=== PATIENT | male | born 1975 | race Caucasian/White ===

== ENCOUNTER 2017-12-18 13:00 | Emergency (ER) | payer OTHER, BC ==
[2017-12-18] MEDS ORDERED: NORMAL SALINE 1000 ML 1,000 ML IV ONE (13:28)
[2017-12-18 13:52] LABS: ABSOLUTE BASOPHILS # (AUTO) 0.1 10^3/uL (0.0-0.2); ABSOLUTE EOSINOPHILS # (AUTO) 0.3 10^3/uL (0.0-0.6); ABSOLUTE LYMPHOCYTES (AUTO) 1.6 10^3/uL (0.5-4.7); ABSOLUTE MONOCYTES (AUTO) 0.7 10^3/uL (0.1-1.4); ABSOLUTE NEUT (AUTO) 9.6 10^3/uL (1.7-8.2); BASOPHILS % (AUTO) 0.5 % (0-2); EOSINOPHILS % (AUTO) 2.2 % (0-6); HEMATOCRIT 47.5 % (37.9-51.0); HEMOGLOBIN 16.1 g/dL (13.5-17.0); LYMPHOCYTES % (AUTO) 13.1 % (13-45); MEAN CORPUSCULAR HEMOGLOBIN 29.1 pg (27.0-33.4); MEAN CORPUSCULAR VOLUME 86 fl (80-97); MONOCYTES % (AUTO) 5.4 % (3-13); PLATELET COUNT 265 10^3/uL (150-450); RED BLOOD COUNT 5.56 10^6/uL (4.35-5.55); SEGMENTED NEUTROPHILS % (AUTO) 78.8 % (42-78); TOTAL CELLS COUNTED % (AUTO) 100 %; WHITE BLOOD COUNT 12.2 10^3/uL (4.0-10.5)
[2017-12-18 13:58] LABS: APPEARANCE,URINE SLIGHTLY-CLOUDY; BILIRUBIN,URINE NEGATIVE (NEGATIVE); COLOR,URINE YELLOW; GLUCOSE, URINE NEGATIVE (NEGATIVE); KETONES,URINE NEGATIVE (NEGATIVE); LEUKOCYTE ESTERASE,URINE NEGATIVE (NEGATIVE); NITRITE,URINE NEGATIVE (NEGATIVE); PROTEIN,URINE NEGATIVE (NEGATIVE); UROBILINOGEN,URINE NEGATIVE mg/dL (<2.0)
[2017-12-18 14:09] LABS: ALANINE AMINOTRANSFERASE 25 U/L (21-72); ALBUMIN 4.1 g/dL (3.5-5.0); ALKALINE PHOSPHATASE 64 U/L (38-126); ANION GAP 8 (5-19); ASPARTATE AMINO TRANSFERASE 26 U/L (17-59); BILIRUBIN,DIRECT 0.3 mg/dL (0.0-0.4); BILIRUBIN,TOTAL 0.3 mg/dL (0.2-1.3); BLOOD UREA NITROGEN 29 mg/dL (7-20); CALCIUM 9.2 mg/dL (8.4-10.2); CARBON DIOXIDE 23 mmol/L (22-30); CHLORIDE 110 mmol/L (98-107); GLUCOSE 109 mg/dL (75-110); LIPASE 74.6 U/L (23-300); POTASSIUM 4.2 mmol/L (3.6-5.0); TOTAL PROTEIN 6.7 g/dL (6.3-8.2)
--- NOTE | 2017-12-18 15:52 | ER Document Report ---
ED GI/ - General Chief Complaint: Abdominal Pain Stated Complaint: ABDOMINAL PAIN Time Seen by Provider: 12/18/17 13:18 Mode of Arrival: Ambulatory Information source: Patient Notes: Patient started experiencing periumbilical abdominal pain after he lifted a heavy object at work. TRAVEL OUTSIDE OF THE [place] IN LAST 30 DAYS: No - HPI Patient complains to provider of: Abdominal pain. No: Dysuria, Vomiting Onset: Just prior to arrival Timing/Duration: Sudden Quality of pain: Sharp Severity at maximum: Mild Severity in ED: Mild Pain Level: 2 Context: Lifting Location: Other - Umbilical Associated symptoms: None Exacerbated by: Denies Relieved by: Denies Similar symptoms previously: No Recently seen / treated by doctor: No - Related Data Allergies/Adverse Reactions: No Known Allergies Allergy (Verified 12/18/17 13:02) Past Medical History - Social History Smoking Status: Never Smoker Chew tobacco use (# tins/day): Yes Family History: Reviewed & Not Pertinent Patient has suicidal ideation: No Patient has homicidal ideation: No - Past Medical History Cardiac Medical History: Reports: Hx Hypertension Renal/ Medical History: Denies: Hx Peritoneal Dialysis Psychiatric Medical History: Denies: Hx Depression Review of Systems - Review of Systems Constitutional: denies: Chills, Fever EENT: denies: Eye pain, Eye discharge Cardiovascular: denies: Chest pain, Palpitations, Syncope Respiratory: denies: Cough, Short of breath Gastrointestinal: Abdominal pain. denies: Nausea, Vomiting, Poor appetite Genitourinary: No symptoms reported Male Genitourinary: No symptoms reported Musculoskeletal: No symptoms reported Skin: No symptoms reported Hematologic/Lymphatic: No symptoms reported Neurological/Psychological: No symptoms reported -: Yes All other systems reviewed and negative Physical Exam - Vital signs Vitals: Temp Pulse Resp BP Pulse Ox 98.5 F 93 16 134/77 H 97 12/18/17 13:07 12/18/17 13:07 12/18/17 13:07 12/18/17 13:07 12/18/17 13:07 - General General appearance: Appears well, Alert In distress: None - HEENT Head: Normocephalic, Atraumatic Eyes: Normal Pupils: PERRL - Respiratory Respiratory status: No respiratory distress Chest status: Nontender Breath sounds: Normal Chest palpation: Normal - Cardiovascular Rhythm: Regular Heart sounds: Normal auscultation Murmur: No - Abdominal Inspection: Normal Distension: No distension Bowel sounds: Normal Tenderness: Other - Umbilical hernia with tenderness to palpation. The hernia is reducible. Organomegaly: No organomegaly - Back Back: Normal, Nontender - Extremities General upper extremity: Normal inspection, Nontender, Normal color, Normal ROM , Normal temperature General lower extremity: Normal inspection, Nontender, Normal color, Normal ROM , Normal temperature, Normal weight bearing. No: Juan Jose's sign - Neurological Neuro grossly intact: Yes Cognition: Normal Orientation: AAOx4 Herman Coma Scale Eye Opening: Spontaneous [place] Coma Scale Verbal: Oriented Herman Coma Scale Motor: Obeys Commands Herman Coma Scale Total: 15 Speech: Normal Motor strength normal: LUE, RUE, LLE, RLE Sensory: Normal - Psychological Associated symptoms: Normal affect, Normal mood - Skin Skin Temperature: Warm Skin Moisture: Dry Skin Color: Normal Course - Vital Signs Vital signs: Temp Pulse Resp BP Pulse Ox 98.5 F 56 L 16 168/93 H 100 12/18/17 17:59 12/18/17 17:59 12/18/17 13:07 12/18/17 17:59 12/18/17 17:59 - Laboratory Result Diagrams: 12/18/17 13:45 12/18/17 13:45 Laboratory results interpreted by me: 12/18/17 12/18/17 13:45 13:45 WBC 12.2 H RBC 5.56 H Seg Neutrophils % 78.8 H Absolute Neutrophils 9.6 H Chloride 110 H BUN 29 H - Transfer of Care Notes: 12/18/17 16:55 Umbilical hernia. Discharge - Discharge Clinical Impression: Umbilical hernia without obstruction or gangrene Condition: Stable Disposition: HOME, SELF-CARE Instructions: Abdominal Pain ([facility]), Umbilical Hernia ([facility]) Additional Instructions: Please follow-up with Dr. Preciado Safely tomorrow morning in his clinic. Return to the emergency room if her condition worsens. Referrals: KYLEIGH FERRO MD [ACTIVE STAFF] - Follow up as needed
--- NOTE | 2017-12-18 17:37 | RADIOLOGY REPORT (SQ) ---
EXAM DESCRIPTION: CT ABD/PELVIS WITH IV ORAL COMPLETED DATE/TIME: 12/18/2017 4:45 pm REASON FOR STUDY: abdominal pain COMPARISON: None. TECHNIQUE: CT scan of the abdomen and pelvis performed using helical scanning technique with dynamic intravenous contrast injection. Oral contrast. Images reviewed with lung, soft tissue, and bone win dows. Reconstructed coronal and sagittal MPR images reviewed. Delayed images for evaluation of the ur inary system also acquired. All images stored on PACS. All CT scanners at this facility use dose modulation, iterative reconstruction, and/or weight based d osing when appropriate to reduce radiation dose to as low as reasonably achievable (ALARA). [facility]: Dose Right [facility]: CareDose [facility]: Dose Right [facility]: Teradose 4D [facility]: ShareThis CONTRAST TYPE AND DOSE: contrast/concentration: Isovue 350.00 mg/ml; Total Contrast Delivered: 100.0 ml; Total Saline Delivered: 40.0 ml RENAL FUNCTION: BUN 29 creatinine 1.07 RADIATION DOSE: CT Rad equipment meets quality standard of care and radiation dose reduction techniq ues were employed. CTDIvol: 9.9 - 14.0 mGy. DLP: 1425 mGy-cm.. LIMITATIONS: None. FINDINGS: LOWER CHEST: No significant findings. No nodules or infiltrates. LIVER: Normal size. No masses. No dilated ducts. SPLEEN: Normal size. No focal lesions. PANCREAS: No masses. No significant calcifications. No adjacent inflammation or peripancreatic fluid collections. Pancreatic duct not dilated. GALLBLADDER: No identified stones by CT criteria. No inflammatory changes to suggest cholecystitis. ADRENAL GLANDS: No significant masses or asymmetry. RIGHT KIDNEY AND URETER: No solid masses. No significant calcifications. No hydronephrosis or hyd roureter. LEFT KIDNEY AND URETER: No solid masses. No significant calcifications. No hydronephrosis or hydr oureter. AORTA AND VESSELS: No aneurysm. No dissection. Renal arteries, SMA, celiac without stenosis. RETROPERITONEUM: No retroperitoneal adenopathy, hemorrhage or masses. BOWEL AND PERITONEAL CAVITY: No masses or inflammatory changes. No free fluid or peritoneal masses. APPENDIX: Normal. PELVIS: No mass. No free fluid. Normal bladder. ABDOMINAL WALL: 18 mm wide umbilical hernia containing fat. Small inguinal hernias. BONES: No significant or acute abnormality. OTHER: No other significant finding. IMPRESSION: Umbilical hernia containing fat. Small inguinal hernias. TECHNICAL DOCUMENTATION: JOB ID: [id number] Quality ID # [id number]: Final reports with documentation of one or more dose reduction techniques (e.g., Au tomated exposure control, adjustment of the mA and/or kV according to patient size, use of iterative reconstruction technique) 2010 [employer]- All Rights Reserved Reading location - IP/workstation name: [email or web address]
[2017-12-18 18:00] VITALS: BP 168/93
== END 2017-12-18 18:02 | disposition home or self-care (01) ==
LOC: ER 13:00
DX: K42.9 Umbilical hernia without obstruction or gangrene (principal); F17.220 Nicotine dependence, chewing tobacco, uncomplicated
CPT/HCPCS: 36415; 74177; 80053; 81001; 83690; 85025; 96360; 96361; 99284

== ENCOUNTER 2018-01-23 09:52 | Day surgery (SDC) | payer BC, OTHER ==
[2018-01-17 14:48] LABS: HEMATOCRIT 46.1 % (37.9-51.0); HEMOGLOBIN 16.2 g/dL (13.5-17.0); MEAN CORPUSCULAR HEMOGLOBIN 29.6 pg (27.0-33.4); MEAN CORPUSCULAR HGB CONC 35.1 g/dL (32.0-36.0); MEAN CORPUSCULAR VOLUME 84 fl (80-97); PLATELET COUNT 262 10^3/uL (150-450); RED BLOOD COUNT 5.46 10^6/uL (4.35-5.55); RED CELL DISTRIBUTION WIDTH 13.3 % (11.5-14.0); WHITE BLOOD COUNT 10.6 10^3/uL (4.0-10.5)
--- NOTE | 2018-01-17 22:37 | EKG REPORT ---
SEVERITY:- NORMAL ECG - SINUS RHYTHM : Confirmed by: Kristi Sahni MD 17-Jan-2018 22:37:12
[~2018-01-23 09:52] MED LIST: ACETAMINOPHEN 325 MG TABLET PO PRN; BUPIVACAINE HCL 0.25 % INJ/PF (2.5 MG/1 ML) 30 ML VIAL ONE; CEFAZOLIN 2 GM/D5W RTU 2 GM/50 ML RTUPB IV PRN; LIDOCAINE 1% INJ-PF (10 MG/ML) 30 ML SDV ONE
[2018-01-23] MEDS ORDERED: MIDAZOLAM 2 MG/2 ML INJ ONE ×2 (09:53→10:14)
[2018-01-23] MEDS ORDERED: FENTANYL CITRATE INJ/PF 100 MCG/2 ML AMPUL ONE (09:53)
[2018-01-23] MEDS ORDERED: ONDANSETRON HCL INJ/PF 4 MG/2 ML SDV ONE (09:53)
[2018-01-23] MEDS ORDERED: PROPOFOL INJ 200 MG/20 ML VIAL IV ONE ×2 (09:54→10:15)
[2018-01-23] MEDS ORDERED: KETAMINE HCL INJ 500 MG/10 ML VIAL ONE (10:15)
--- NOTE | 2018-01-23 11:26 | Discharge Summary ---
Discharge Summary (SDC) - Discharge Final Diagnosis: Symptomatic umbilical hernia Date of Surgery: 01/23/18 Discharge Date: 01/23/18 Forms: [facility] Discharge Plan Referrals: KYLEIGH FERRO MD [ACTIVE STAFF] - Discharge Diet: As Tolerated Respiratory Treatments at Home: Deep Breathing/Coughing, Incentive Spirometer Discharge Activity: No Lifting Over 10 Pounds Home Care Assistance: None Needed Report the Following to Your Physician Immediately: Shortness of Breath, Nausea , Vomiting, Increase in Pain, Fever over 101 Degrees, Unusual Bleeding, Redness
--- NOTE | 2018-01-23 11:30 | Operative Report ---
Nonrecallable Operative Report DATE OF SURGERY: 01/23/18 PREOPERATIVE DIAGNOSIS: Symptomatic umbilical hernia POSTOPERATIVE DIAGNOSIS: Same as above OPERATION: Open umbilical hernia repair with mesh. SURGEON: KYLEIGH FERRO ANESTHESIA: LMAC TISSUE REMOVED OR ALTERED: None COMPLICATIONS: None apparent ESTIMATED BLOOD LOSS: Minimal PROCEDURE: Drains/implants: 6.[address] hernia mesh. Procedure in detail: After informed consent was obtained, the patient was brought to the operating room and laid in the supine position. The area of the abdomen was prepped and draped in a normal sterile fashion. A curvilinear infraumbilical incision was created. It was deepened using sharp and blunt dissection. The cicatrix was identified, encircled with a Lashanda clamp, retracted upwards, and divided at its base. This divided the hernia sac. A small amount of preperitoneal fat was found within the hernia sac. This was reduced back into the preperitoneal space. Defect was measured at approximately 2 cm. Secondary to this, a 6.4 cm hernia mesh was chosen to cover the defect. The mesh was inserted into the preperitoneal space. It was sutured in 4 quadrants using 0 Prolene suture in mattress fashion. The fascia was closed over top of the mesh using 0 Prolene suture in [id number] fashion. The cicatrix was tacked back to the abdominal fascia using 3-0 Vicryl suture. The subcutaneous tissue was closed using 3-0 Vicryl suture in simple running fashion. The overlying skin was closed using 4-0 Vicryl Rapide suture in running subcuticular fashion. A dressing was placed, and the procedure was concluded. All sponge, instrument, and needle counts were correct x2. Condition: Stable.
[2018-01-23] MEDS ORDERED: IBUPROFEN 800 MG TABLET ONE (12:08)
== END 2018-01-23 12:19 | disposition home or self-care (01) ==
LOC: SC 09:52
PROVIDERS: ATTEND Surgery
DX: K42.9 Umbilical hernia without obstruction or gangrene (principal); I10 Essential (primary) hypertension; F17.210 Nicotine dependence, cigarettes, uncomplicated; Z79.899 Other long term (current) drug therapy
CPT/HCPCS: 93005; 36415; 85027; 93010; 49585; J2250; J3010; J3490 ×2; J2405; J2704; J0690; 750

== ENCOUNTER 2018-03-08 18:56 | Emergency (ER) | payer OTHER ==
[2018-03-08] MEDS ORDERED: OXYCODONE-ACETAMINOPHEN 5-325 MG TABLET PO ONE (19:34)
--- NOTE | 2018-03-08 19:36 | ER Document Report ---
ED Medical Screen (RME) - General Chief Complaint: Knee Injury Stated Complaint: WC/FALL Time Seen by Provider: 03/08/18 19:34 Notes: Patient is a 42-year-old male that presents to the emergency department for chief complaint of left knee pain. Patient states he slipped and fell around 2 PM today, the twisting motion, and now has significant knee pain, seen in urgent care, advised to come to the ED. Currently rates his pain as a 9 out of 10, aching and worse with any range of motion of his knee.. ROS: Other than noted above, the 12 point review of systems was reviewed with the patient and were negative, all pertinent findings are included in the HPI. PHYSICAL EXAMINATION: Vital signs reviewed. GENERAL: Well-appearing, well-nourished and in no acute distress. HEAD: Atraumatic, normocephalic. EYES: Pupils equal round extraocular movements intact, conjunctiva are normal. ENT: Nares patent NECK: Normal range of motion CV: Heart regular rate and rhythm LUNGS: No respiratory distress Musculoskeletal: Pain with extension of the left knee, patient is unable to fully extend his left knee, the patella appears to be subluxed laterally, there is tenderness with palpation, and an appreciable joint effusion. He also has joint line tenderness over the medial aspect of his knee. NEUROLOGICAL: Normal speech PSYCH: Normal mood, normal affect. MDM: Patient seen and examined for rapid initial assessment. Vital signs reviewed. A comprehensive ED assessment and evaluation of the patient, analysis of test results and completion of the medical decision making process will be conducted by additional ED providers. *Note is created using voice recognition software and may contain spelling, syntax or grammatical errors. TRAVEL OUTSIDE OF THE [place] IN LAST 30 DAYS: No - Related Data Allergies/Adverse Reactions: No Known Allergies Allergy (Verified 01/23/18 09:59) Past Medical History - Social History Chew tobacco use (# tins/day): Yes Frequency of alcohol use: Occasional Drug Abuse: None - Past Medical History Cardiac Medical History: Reports: Hx Hypertension Denies: Hx Heart Attack Pulmonary Medical History: Denies: Hx Asthma Neurological Medical History: Denies: Hx Cerebrovascular Accident, Hx Seizures Renal/ Medical History: Denies: Hx Peritoneal Dialysis GI Medical History: Denies: Hx Hepatitis, Hx Hiatal Hernia, Hx Ulcer Psychiatric Medical History: Denies: Hx Depression Infectious Medical History: Denies: Hx Hepatitis Past Surgical History: Denies: Hx Open Heart Surgery, Hx Pacemaker Physical Exam - Vital signs Vitals: Temp Pulse Resp BP Pulse Ox 98.2 F 93 16 136/79 H 97 03/08/18 19:05 03/08/18 19:05 03/08/18 19:05 03/08/18 19:05 03/08/18 19:05 Course - Vital Signs Vital signs: Temp Pulse Resp BP Pulse Ox 98.2 F 93 16 136/79 H 97 03/08/18 19:05 03/08/18 19:05 03/08/18 19:05 03/08/18 19:05 03/08/18 19:05 Doctor's Discharge - Discharge Referrals: ANN CRISTINA FILLING MACHINE OPERATOR [Primary Care Provider] - Follow up as needed
--- NOTE | 2018-03-08 20:15 | RADIOLOGY REPORT (SQ) ---
EXAM DESCRIPTION: KNEE LEFT 3 VIEWS COMPLETED DATE/TIME: 03/08/2018 8:03 pm REASON FOR STUDY: left knee pain, injury COMPARISON: None. NUMBER OF VIEWS: Three views. TECHNIQUE: AP, lateral, and sunrise patella radiographic images acquired of the left knee. LIMITATIONS: None. FINDINGS: MINERALIZATION: Osteopenia. BONES: No acute fracture or dislocation. No worrisome bone lesions. Tricompartmental degenerative c hanges are present, most significantly affecting in the lateral compartment. JOINT: No significant joint effusion is present. SOFT TISSUES: Rounded hyperdensities localizing to the posteromedial soft tissues are of uncertain et iology or significance. OTHER: No other significant finding. IMPRESSION: Tricompartmental degenerative changes. No evidence of acute osseous injury. TECHNICAL DOCUMENTATION: JOB ID: [id number] [employer]- All Rights Reserved Reading location - IP/workstation name: [email or web address]
[2018-03-08] MEDS ORDERED: HYDROCODONE/ACETAMINOPHEN 5-325 MG (6 TAB/ER DISP) PO PRN (20:39)
[2018-03-08] MEDS ORDERED: IBUPROFEN 800 MG TABLET PO ONE (20:40)
--- NOTE | 2018-03-08 20:41 | ER Document Report ---
Doctor's Note Notes: I personally and independently obtained patient history and examined the patient in conjunction with the APC and agree with the assessment, treatment plan and disposition of the patient as recorded by the APC, and have reviewed the APC's note. HISTORY OF PRESENT ILLNESS: Patient is a 42-year-old male that presents to the emergency department for chief complaint of left knee pain after injury and fall. Patient fell at work on 2 PM, and injured his left knee, it has been worse since then, initially went to urgent care, they took x-rays and advised him to come to the ED. ROS: Constitutional: Negative for fever. Cardiovascular: Negative for chest pain. Respiratory: Negative for shortness of breath. Gastrointestinal: Negative for vomiting or abdominal pain Musculoskeletal: Positive for knee pain. Skin: Negative for rash. Neurological: Negative for weakness or numbness. Other than noted above, the 12 point review of systems was reviewed with the patient and were negative, all pertinent findings are included in the HPI. PHYSICAL EXAMINATION: Vital signs reviewed, nursing noted reviewed. GENERAL: Well-appearing, well-nourished and appears uncomfortable HEAD: Atraumatic, normocephalic. EYES: Eyes appear normal, conjunctiva are normal. ENT: nares patent, oropharynx clear without exudates. Moist mucous membranes. NECK: Normal range of motion, supple without lymphadenopathy LUNGS: Breath sounds clear to auscultation bilaterally and equal. No wheezes rales or rhonchi. HEART: Regular rate and rhythm without murmurs ABDOMEN: Soft, nontender, normoactive bowel sounds. No rebound, guarding, or rigidity. No masses appreciated. EXTREMITIES: Patient does have a joint effusion of the left knee, tenderness to palpation over the medial joint line, and tenderness to palpation of the patella , no gross deformity, patient is able to extend his left knee, with significant pain, the patella does appear to be slightly subluxed laterally, will confirm with x-rays. Patient also has tenderness to palpation along the posterior medial aspect of the joint as well. The ankle appears unremarkable, the hip is unremarkable, the rest the patient's extremity exam is grossly unremarkable, and , as good range of motion, no pitting or edema. NEUROLOGICAL: No focal neurological deficits. Moves all extremities spontaneously Motor and sensory grossly intact on exam. PSYCH: Normal mood, normal affect. SKIN: Warm, Dry, normal turgor, no rashes or lesions noted on exposed MEDICAL DECISION MAKING: X-rays taken, no acute bony injury, patient does have tricompartmental arthritis , which he likely flared up, but I believe the patient may have a meniscal injury as well, we will placed him in a knee immobilizer, discharged him home with pain medication and anti-inflammatories and advised him to follow-up with orthopedic surgery. Patient agreeable to plan of care. Please review detail APC documentation. *Note is created using voice recognition software and may contain spelling, syntax or grammatical errors.
--- NOTE | 2018-03-08 20:53 | ER Document Report ---
HPI - HPI Time Seen by Provider: 03/08/18 19:34 Pain Level: 2 Notes: Patient is a 42-year-old male who presents to the emergency department with chief complaint of left knee pain. He states that he fell earlier today around 2 PM and when he did there was a twisting motion in his right knee. He reports that he has significant pain to that area. He states he went to an urgent care , they did a x-ray and referred him to the emergency department to rule out a possible tendon rupture. - CONSTITUTIONAL Constitutional: DENIES: Fever, Chills - NEURO Neurology: DENIES: Headache, Weakness, Vision blurred, Dizzinesss / Vertigo - MUSCULOSKELETAL Musculoskeletal: REPORTS: Extremity pain - Left knee from fall today Past Medical History - General Information source: Patient - Social History Smoking Status: Current Every Day Smoker Chew tobacco use (# tins/day): Yes Frequency of alcohol use: Occasional Drug Abuse: None Family History: Reviewed & Not Pertinent Patient has suicidal ideation: No Patient has homicidal ideation: No - Past Medical History Cardiac Medical History: Reports: Hx Hypertension Denies: Hx Heart Attack Pulmonary Medical History: Denies: Hx Asthma Neurological Medical History: Denies: Hx Cerebrovascular Accident, Hx Seizures Renal/ Medical History: Denies: Hx Peritoneal Dialysis GI Medical History: Denies: Hx Hepatitis, Hx Hiatal Hernia, Hx Ulcer Psychiatric Medical History: Denies: Hx Depression Infectious Medical History: Denies: Hx Hepatitis Past Surgical History: Denies: Hx Open Heart Surgery, Hx Pacemaker Vertical Provider Document - CONSTITUTIONAL Notes: PHYSICAL EXAMINATION: GENERAL: Well-appearing, well-nourished and in no acute distress. HEAD: Atraumatic, normocephalic. EYES: Pupils equal round extraocular movements intact, conjunctiva are normal. ENT: Nares patent NECK: Normal range of motion LUNGS: No respiratory distress Musculoskeletal: Limited range of motion to left knee, point tenderness over the anterior aspect of the patella. Moderate swelling. No obvious deformity noted. NEUROLOGICAL: Normal speech, normal gait. PSYCH: Normal mood, normal affect. SKIN: Warm, Dry, normal turgor, no rashes or lesions noted. - INFECTION CONTROL TRAVEL OUTSIDE OF THE [place] IN LAST 30 DAYS: No Course - Re-evaluation Re-evalutation: X-rays were done today with no acute fracture or dislocation. Dr. Allan evaluated the patient at the bedside and believes there is a possible internal knee injury such as a meniscus tear. Patient will be placed in a knee immobilizer, crutches and referred to orthopedics. Patient verbalizes understanding of plan and is agreeable to same. - Vital Signs Vital signs: Temp Pulse Resp BP Pulse Ox 98.2 F 93 16 136/79 H 97 03/08/18 19:05 03/08/18 19:05 03/08/18 19:05 03/08/18 19:05 03/08/18 19:05 Procedures - Immobilization Left knee Pre-Proc Neuro Vasc Exam: Normal Immobilizer type: Crutches, Knee immobilizer Post-Proc Neuro Vasc Exam: Normal Alignment checked and good: Yes Discharge - Discharge Clinical Impression: Knee injury Qualifiers: Encounter type: initial encounter Laterality: left Qualified Code(s): S89.92XA - Unspecified injury of left lower leg, initial encounter Condition: Stable Disposition: HOME, SELF-CARE Additional Instructions: SUSPECTED INTERNAL KNEE INJURY: The examiner of your injured knee suspects an internal injury to the cartilage or internal ligaments. This must be further investigated by an capacity management specialist. The knee should be protected, ice packed, and elevated while awaiting your follow-up exam by the orthopedist. If there is severe swelling, severe pain, or any new symptoms while awaiting your exam, you should call the orthopedist. (If he/she is unavailable, call us or return for re-examination.) KNEE IMMOBILIZING SPLINT: The knee immobilizing splint will protect the injury while healing begins. This type of splint does not allow the knee to bend at all. No running or sports will be possible. If the splint allows painfree walking, it's giving adequate protection. If there is still significant pain, crutches may be needed as well. Don't do anything that hurts. Adjusted the splint, if necessary. The stiffeners on the sides are attached with Velcro, so they can be easily moved to adjust for thigh and calf size. If you need help with these adjustments, come back. You will lose muscle strength in the thigh while using this splint. The doctor will advise you if it's safe to do isometric knee exercises while you use it. USE OF CRUTCHES: The doctor has recommended that you not bear weight at this time. You will need to use crutches. Adjust the crutches so the tops come to about two inches under the armpit while you are standing upright. Use your hands -- not your armpits -- to support your weight. To get into a chair, support yourself with one crutch on the injured side. Hold the chair with the other hand, then lower yourself while putting all your weight on the good leg. Going up stairs is `good leg up, step up, then bring up crutches and bad leg.' Down stairs is `bad leg and crutches down, then bring good leg down.' If you develop numbness or swelling in an arm or hand, you are using the crutches incorrectly. Return if you are having any problems with the crutches. ICE & ELEVATION: Apply ice packs frequently against the painful area. Many different schedules are recommended, such as "20 minutes on, 20 minutes off" or "one hour ice, two hours rest." If you need to work, you may need to go longer between ice treatments. You should plan to have the area ice packed AT LEAST one- fourth of the time. The ice should be applied over the wrap, tape, or splint, or over a layer of cloth -- not directly against the skin. Some ice bags have a built-in cloth and can be put directly on the skin. Your injured part should be elevated as much as possible over the next 48 hours. Try to keep the injury above the level of the heart. Avoid use of the injured area. Elevation and rest will decrease the swelling. USE OF GHNZ-GOM-ASTADEW IBUPROFEN: Ibuprofen (Advil, Nuprin, Medipren, Motrin IB) is a medication for fever and pain control. In addition, it has anti- inflammatory effects which may be beneficial, especially in the treatment of injuries. It's best to take ibuprofen with food. Persons with ulcer disease or allergy to aspirin should notify their physician of this before taking ibuprofen. Ibuprofen can be given every four to six hours, for a total of four doses daily. Age Pain or fever dose Antiinflammatory dose 6-8 yr 200 mg (1 tab) 200 mg (1 tab) 9-11 yr 200 mg (1 tab) 200-400 mg (1-2 tab) 11-14 yr 200-400 mg (1-2 tab) 400 mg (2 tab) 15-adult 400 mg (2 tab) 600 mg (3 tab) ORAL NARCOTIC MEDICATION: You have been given a prescription for pain control. This medication is a narcotic. It's best taken with food, as nausea can result if taken on an empty stomach. Don't operate machinery or drive within six hours of taking this medication. Do not combine this medicine with alcohol, or with any medication which can cause sedation (such as cold tablets or sleeping pills) unless you get permission from the physician. Narcotics tend to cause constipation. If possible, drink plenty of fluids and eat a diet high in fiber and fruits. Please be aware that prescription narcotics also have the potential for abuse. People become addicted to these medications because of the general sense of wellbeing that they induce. This feeling along with a significant reduction in tension, anxiety, and aggression provides a stimulating seductive quality to these drugs. Once your pain is under control, we encourage you to discard your unused narcotics. FOLLOW-UP CARE: If you have been referred to a physician for follow-up care, call the physician s office for an appointment as you were instructed or within the next two days. If you experience worsening or a significant change in your symptoms, notify the physician immediately or return to the Emergency Department at any time for re-evaluation. Your x-ray does not show any acute findings with the bony structures. Does appear based on your physical examination that you may have a meniscal injury. Please use the knee immobilizer and crutches as outlined above. Take ibuprofen 600 mg every 6 hours for pain and inflammation. Use the narcotic pain medication for severe pain. Please call orthopedics on Saturday to schedule a follow-up appointment. Return to the emergency department if you develop worsening pain, significantly increased swelling or any other symptom that is concerning to you. Prescriptions: Oxycodone HCl/Acetaminophen [Percocet 5-325 mg Tablet] 1 - 2 tab PO Q4H PRN #15 tablet PRN Reason: Forms: Return to Work Referrals: ALICE GARCIA MD [ACTIVE STAFF] - Follow up as needed
[2018-03-08 21:41] VITALS: BP 142/87
== END 2018-03-08 21:16 | disposition home or self-care (01) ==
LOC: ER 18:56
DX: S89.92XA Unspecified injury of left lower leg, initial encounter (principal); M25.562 Pain in left knee; W19.XXXA Unspecified fall, initial encounter; F17.200 Nicotine dependence, unspecified, uncomplicated; I10 Essential (primary) hypertension
CPT/HCPCS: 99283; 73562; L1830

== ENCOUNTER 2018-03-27 12:02 | Emergency (ER) | payer SELFPAY ==
[2018-03-27] MEDS ORDERED: KETOROLAC TROMETHAMINE 60 MG/2 ML SDV IM ONE (12:25)
--- NOTE | 2018-03-27 12:26 | ER Document Report ---
ED Medical Screen (RME) - General Chief Complaint: Testicular Pain Stated Complaint: GROIN PAIN Time Seen by Provider: 03/27/18 12:19 Notes: 42-year-old male patient onset this morning of left groin and testicle pain. He did notice that his urine seemed dark. The testicle is aching like is being squeezed, but it is not tender to palpate. He does not have a history of kidney stones, however he did have a CT scan with IV contrast earlier this year, and on reviewing the scan I believe I see a punctate stone in the mid left kidney. I have greeted and performed a rapid initial assessment of this patient. A comprehensive ED assessment and evaluation of the patient, analysis of test results and completion of the medical decision making process will be conducted by additional ED providers. TRAVEL OUTSIDE OF THE [place] IN LAST 30 DAYS: No - Related Data Allergies/Adverse Reactions: No Known Allergies Allergy (Verified 01/23/18 09:59) Past Medical History - Social History Chew tobacco use (# tins/day): Yes - 0.5/day Frequency of alcohol use: None Drug Abuse: None - Past Medical History Cardiac Medical History: Reports: Hx Hypertension Denies: Hx Heart Attack Pulmonary Medical History: Denies: Hx Asthma Neurological Medical History: Denies: Hx Cerebrovascular Accident, Hx Seizures Renal/ Medical History: Denies: Hx Peritoneal Dialysis GI Medical History: Denies: Hx Hepatitis, Hx Hiatal Hernia, Hx Ulcer Psychiatric Medical History: Denies: Hx Depression Infectious Medical History: Denies: Hx Hepatitis Past Surgical History: Reports: Hx Abdominal Surgery - inguinal/umbilical hernia repair. Denies: Hx Open Heart Surgery, Hx Pacemaker Physical Exam - Vital signs Vitals: Temp Pulse Resp BP Pulse Ox 98.9 F 58 L 14 156/99 H 98 03/27/18 12:07 03/27/18 12:07 03/27/18 12:07 03/27/18 12:07 03/27/18 12:07 Course - Vital Signs Vital signs: Temp Pulse Resp BP Pulse Ox 98.9 F 58 L 14 156/99 H 98 03/27/18 12:07 03/27/18 12:07 03/27/18 12:07 03/27/18 12:07 03/27/18 12:07 Doctor's Discharge - Discharge Referrals: MARSHBURN,ANN D, LEADERSHIP PROGRAM INTERN [Primary Care Provider] - Follow up as needed
[2018-03-27 12:51] LABS: APPEARANCE,URINE CLEAR; BILIRUBIN,URINE NEGATIVE (NEGATIVE); COLOR,URINE YELLOW; GLUCOSE, URINE NEGATIVE (NEGATIVE); KETONES,URINE NEGATIVE (NEGATIVE); LEUKOCYTE ESTERASE,URINE NEGATIVE (NEGATIVE); NITRITE,URINE NEGATIVE (NEGATIVE); PROTEIN,URINE NEGATIVE (NEGATIVE); URINE SPECIFIC GRAVITY 1.016; UROBILINOGEN,URINE NEGATIVE mg/dL (<2.0)
--- NOTE | 2018-03-27 14:42 | RADIOLOGY REPORT (SQ) ---
EXAM DESCRIPTION: U/S SCROTUM W/DOPPLER COMPLETED DATE/TIME: 03/27/2018 2:26 pm REASON FOR STUDY: left testicular pain COMPARISON: None. TECHNIQUE: Static and realtime rodriguez scale imaging of the scrotum and testes. Selected color Doppler and spectral images recorded to document blood flow. LIMITATIONS: None. FINDINGS: RIGHT: TESTICLE: Normal size. Normal echotexture. Normal blood flow. No mass. EPIDIDYMIS: Normal. HYDROCELE OR VARICOCELE: No. HERNIA OR EXTRA-TESTICULAR MASS: No. OTHER: No other significant finding. LEFT: TESTICLE: Normal size. Normal echotexture. Normal blood flow. Ectasia of the rete testis and an in tratesticular varicocele. EPIDIDYMIS: Incidental subcentimeter cyst, likely a small spermatocele. HYDROCELE OR VARICOCELE: No. HERNIA OR EXTRA-TESTICULAR MASS: No. OTHER: No other significant finding. IMPRESSION: Intratesticular varicocele of the left testicle. Doppler flow was not clearly identifie d within this varix although flow may be very sluggish. There is arterial and venous Doppler flow to the left testicular parenchyma without evidence of torsion. TECHNICAL DOCUMENTATION: JOB ID: [id number] [employer]- All Rights Reserved Reading location - IP/workstation name: [id number]
--- NOTE | 2018-03-27 15:10 | ER Document Report ---
ED General - General Chief Complaint: Testicular Pain Stated Complaint: GROIN PAIN Time Seen by Provider: 03/27/18 12:19 Notes: Patient is a 42-year-old male that presents to the emergency department for chief complaint of left testicular pain. Patient states that this started earlier this morning, he got nauseous, and throughout when the pain came on. He rated it as an 8 out of 10 when it started, described as a sharp, nauseating ache he had that one episode of vomiting. He states he received Toradol in triage, and he feels much better now. Denies having any nausea, vomiting his pain is completely resolved. He has never had anything like this before. He does report having a history of a left inguinal hernia repair. But denies history of testicular torsion, or testicular issues. Denies noting any hematuria, dysuria, urinary frequency, diarrhea, chest pain or shortness of breath. Past Medical History: Hypertension Past Surgical History: Umbilical hernia repair, left inguinal hernia repair Social History: Chews tobacco, denies alcohol or drug use Family History: Reviewed and noncontributory for presenting illness Allergies: Reviewed, see documented allergy list. REVIEW OF SYSTEMS: Other than noted above, the 12 point review of systems was reviewed with the patient and were negative, all pertinent findings are included in the HPI. PHYSICAL EXAMINATION: Vital signs reviewed, nursing noted reviewed. GENERAL: Well-appearing, well-nourished and in no acute distress. HEAD: Atraumatic, normocephalic. EYES: Eyes appear normal, extraocular movements intact, sclera anicteric, conjunctiva are normal. ENT: nares patent, oropharynx clear without exudates. Moist mucous membranes. NECK: Normal range of motion, supple without lymphadenopathy LUNGS: Breath sounds clear to auscultation bilaterally and equal. No wheezes rales or rhonchi. HEART: Regular rate and rhythm without murmurs ABDOMEN: Soft, nontender, normoactive bowel sounds. No rebound, guarding, or rigidity. No masses appreciated. Male genital exam: No discharge noted at the meatus, no significant testicular tenderness, or edema, bilateral vertical lie of the testicles, no appreciable hernia with Valsalva maneuver. Positive cremaster reflex bilaterally. EXTREMITIES: Nontender, good range of motion, no pitting or edema. NEUROLOGICAL: No focal neurological deficits. Moves all extremities spontaneously Motor and sensory grossly intact on exam. PSYCH: Normal mood, normal affect. SKIN: Warm, Dry, normal turgor, no rashes or lesions noted on exposed skin TRAVEL OUTSIDE OF THE [place] IN LAST 30 DAYS: No - Related Data Allergies/Adverse Reactions: No Known Allergies Allergy (Verified 01/23/18 09:59) Past Medical History - Social History Smoking Status: Never Smoker Chew tobacco use (# tins/day): Yes - 0.5/day Frequency of alcohol use: None Drug Abuse: None Family History: Reviewed & Not Pertinent Patient has suicidal ideation: No Patient has homicidal ideation: No - Past Medical History Cardiac Medical History: Reports: Hx Hypertension Denies: Hx Heart Attack Pulmonary Medical History: Denies: Hx Asthma Neurological Medical History: Denies: Hx Cerebrovascular Accident, Hx Seizures Renal/ Medical History: Denies: Hx Peritoneal Dialysis GI Medical History: Denies: Hx Hepatitis, Hx Hiatal Hernia, Hx Ulcer Psychiatric Medical History: Denies: Hx Depression Infectious Medical History: Denies: Hx Hepatitis Past Surgical History: Reports: Hx Abdominal Surgery - inguinal/umbilical hernia repair. Denies: Hx Open Heart Surgery, Hx Pacemaker Physical Exam - Vital signs Vitals: Temp Pulse Resp BP Pulse Ox 98.9 F 58 L 14 156/99 H 98 03/27/18 12:07 03/27/18 12:07 03/27/18 12:07 03/27/18 12:07 03/27/18 12:07 Course - Re-evaluation Re-evalutation: Patient seen and examined vital signs reviewed. Laboratory data and imaging were ordered as appropriate for the patient's presenting symptoms and complaint, with consideration of any critical or life threatening conditions that may be associated with their obtained history and exam as noted above. Patient was treated with IM Toradol Results were reviewed when available and demonstrated left testicular varicocele, with good blood flow on Doppler, no evidence of torsion, UA was positive for hematuria The patient was re-evaluated and was stable, pain and not returned, patient made aware of results, advised follow-up with urology, given hematuria, and the varicocele, suspect a possible torsion induced torsion, however the patient appears well, and has not had any further pain, and I feel he can follow-up as an outpatient at this time. Evaluation was most consistent with left testicular varicocele and testicular pain, and hematuria Results were discussed with the patient at this point, after careful consideration I feel that that patient can be discharged from the emergency department, the patient was educated treatments and reasons to return to the emergency department based on their presumed diagnosis as noted above, they were advised to followup with a primary care physician in 2-3 days. Patient was agreeable to plan of care. *Note is created using voice recognition software and may contain spelling, syntax or grammatical errors. Laboratory 03/27/18 12:27 Urine Color YELLOW Urine Appearance CLEAR Urine pH 5.0 Ur Specific [place] 1.016 Urine Protein NEGATIVE Urine Glucose (UA) NEGATIVE Urine Ketones NEGATIVE Urine Blood LARGE H Urine Nitrite NEGATIVE Urine Bilirubin NEGATIVE Urine Urobilinogen NEGATIVE Ur Leukocyte Esterase NEGATIVE Urine WBC (Auto) 2 Urine RBC (Auto) 65 U Hyaline Cast (Auto) 54 Urine Mucus (Auto) RARE Urine Ascorbic Acid NEGATIVE Scrotum Ultrasound 03/27/18 12:45 IMPRESSION: Intratesticular varicocele of the left testicle. Doppler flow was not clearly identified within this varix although flow may be very sluggish. There is arterial and venous Doppler flow to the left testicular parenchyma without evidence of torsion. - Vital Signs Vital signs: Temp Pulse Resp BP Pulse Ox 98.2 F 85 14 144/85 H 97 03/27/18 15:14 03/27/18 15:14 03/27/18 12:07 03/27/18 15:14 03/27/18 15:14 - Laboratory Laboratory results interpreted by me: 03/27/18 12:27 Urine Blood LARGE H Discharge - Discharge Clinical Impression: Left varicocele, Hematuria Condition: Stable Disposition: HOME, SELF-CARE Additional Instructions: Please follow-up with urology regarding the blood found in the urine, and follow-up regarding the varicocele, noticed on your ultrasound, if you have any worsening pain, or severe pain, please return to the emergency department immediately. [email or web address] [email or web address] [facility] [address]in[address] Mehta [email or web address] [address] Prescriptions: RX: Naproxen 500 mg PO BID PRN #30 tablet PRN Reason: testiclular pain Forms: Return to Work Referrals: ANN CRISTINA, MEDICAL EDUCATOR [Primary Care Provider] - Follow up as needed
[2018-03-27 15:16] VITALS: BP 144/85
== END 2018-03-27 15:24 | disposition home or self-care (01) ==
LOC: ER 12:02
DX: I86.1 Scrotal varices (principal); N50.812 Left testicular pain; R31.9 Hematuria, unspecified; R11.0 Nausea; I10 Essential (primary) hypertension
CPT/HCPCS: 99284; 96372; 81001; 76870; 93976; J1885